=== PATIENT | female | born 1970 | race Hispanic/Latino ===

== ENCOUNTER → 2024-12-13 | Day surgery (SDC) | payer OTHER ==
[~2024-12-13] MED LIST: AMLODIPINE BESYL5 MG PO; COLESTIPOL HCL1 GM PO; DEXMEDETOMIDINE HCL 2 ML ONE; DICYCLOMINE HCL20 MG PO; DIOVAN HCT 80-1 EACH PO; DIPHENOXYLATE-1 EACH PO; FENTANYL CITRATE/PF 100MCG/2 ML INJ ONE; LIDOCAINE HCL 2% LOCAL INJ 5 ML SDV VIAL INJ ONE; METOCLOPRAMIDE HCL 10 MG/2ML VIAL ONE; METOPROLOL SUCC50 MG PO; PHENERGAN PO; PROPOFOL IV EMULSION 10 MG/ML 20 ML VIAL ONE; SODIUM CHLORIDE 0.9% 100 ML ONE; XIFAXAN550 MG PO
[2024-12-13] MEDS: LACTATED RINGER'S 1,000 ML ONE (07:32)
[2024-12-13 09:40] VITALS: TEMP 97.1
[2024-12-13 10:00] VITALS: BP 105/73; PULSE 84; RESP 18; O2SAT 99
[2024-12-13 14:53] LABS: CDIFF AG QUIK CHEK NEGATIVE (NEGATIVE); CDIFF TOX QUIK CHEK NEGATIVE (NEGATIVE)
[2024-12-18 08:12] LABS: ENDOMYSIAL ANTIBODIES, IGA Negative (Negative)
[2024-12-18 08:16] LABS: TISSUE TRANSGLUTAMINASE IGA AB <2 U/mL (0-3)
== END | disposition home or self-care (01) ==
LOC: OR 06:43
PROVIDERS: ATTEND Internal Medicine Gastroenterology
DX: K29.70 Gastritis, unspecified, without bleeding (principal); K63.5 Polyp of colon; K52.9 Noninfective gastroenteritis and colitis, unspecified; K21.9 Gastro-esophageal reflux disease without esophagitis; R19.5 Other fecal abnormalities; K22.10 Ulcer of esophagus without bleeding; K44.9 Diaphragmatic hernia without obstruction or gangrene; K57.30 Diverticulosis of large intestine without perforation or abscess without bleeding; K62.89 Other specified diseases of anus and rectum; K64.8 Other hemorrhoids; I10 Essential (primary) hypertension; E78.5 Hyperlipidemia, unspecified; M81.0 Age-related osteoporosis without current pathological fracture; M06.9 Rheumatoid arthritis, unspecified; Z01.810 Encounter for preprocedural cardiovascular examination; Z79.899 Other long term (current) drug therapy; Z86.19 Personal history of other infectious and parasitic diseases; Z85.3 Personal history of malignant neoplasm of breast; Z85.42 Personal history of malignant neoplasm of other parts of uterus; Z92.3 Personal history of irradiation
CPT/HCPCS: 43239; 45378; 45380; 45385; 82784; 83516; 83630; 83993; 86140; 86256; 87045; 87177; 87324; 87328; 87449; 93005; J2003; J2470; J2765; J7050